=== PATIENT | male | born 1945 | race Caucasian/White ===

== ENCOUNTER → 2017-04-06 | Outpatient (CLI) | payer MEDICARE, OTHER ==
[2016-03-15 03:20] VITALS: BP 139/71
[~2017-04-06] MED LIST: ONDA4TAB10 SL; OXYC-323 PO; TAMS0.4C97 PO
--- NOTE | 2017-04-06 10:38 | RAD ---
CT of the abdomen and pelvis without contrast, 04/06/2017: History: Left flank pain, nephrolithiasis Noncontrast scans were obtained utilizing the renal stone protocol. There is mild bilateral renal cortical scarring. No intrarenal calculi are identified. The left renal collecting system and proximal left ureter are mildly distended. This is due to a 3 mm proximal left ureteral calculus located at the L3-4 level.. The right renal collecting system and right ureter are unremarkable. There is mild streaky perinephric edema, more so on the left. The prostate gland is mildly enlarged and contains calcifications. It measures 5 cm in width. There is mild diffuse bladder wall thickening accentuated by the lack of bladder distention. There is mild streaky atelectasis or scarring in the inferior aspects of the lingula and right middle lobe. Several coronary artery calcifications are noted. There is a tiny low-density lesion in the lateral aspect of the right lobe of liver. It is too small to definitively characterize but is likely a small cyst or hepatic hematoma. The gallbladder is unremarkable. No pancreatic abnormality is seen. There are calcified granulomata in the spleen. The spleen is of normal size. Moderate aortoiliac calcific plaquing is present without evidence of aneurysm. No abdominal or pelvic adenopathy is seen. The bowel loops are not dilated. Colonic diverticula are present, most numerous in the descending and sigmoid colon. No paracolonic inflammatory process is seen. There is mild streaky increased density in the central mesenteric fat compatible with mesenteric edema versus scarring. No free fluid or free air is evident in the abdomen or pelvis. IMPRESSION: 1. 3 mm obstructing calculus in the proximal left ureter. 2. Colonic diverticulosis. 3. Mild nonspecific prostatic enlargement. 4. Mild stranding in the central mesenteric fat suggesting scarring versus nonspecific edema. PQRS Compliance Statement: One or more of the following individualized dose reduction techniques were utilized for this examination: 1. Automated exposure control 2. Adjustment of the mA and/or kV according to patient size 3. Use of iterative reconstruction technique
== END | disposition home or self-care (01) ==
LOC: CT 09:53
PROVIDERS: ATTEND Physician Assistant
DX: N20.2 Calculus of kidney with calculus of ureter (principal); N40.0 Benign prostatic hyperplasia without lower urinary tract symptoms; K57.30 Diverticulosis of large intestine without perforation or abscess without bleeding
CPT/HCPCS: 74176

== ENCOUNTER → 2018-11-02 | Outpatient (CLI) | payer MEDICARE, OTHER ==
[2016-03-15 03:20] VITALS: BP 139/71
[~2018-11-02] MED LIST changes: -OXYC-323 PO; +OXYC1TAB15 PO
--- NOTE | 2018-11-02 09:09 | RAD ---
ABDOMEN LTD: 11/02/2018 8:00 AM Indication: 73 years old Male. Right upper quadrant abdominal pain. Comparison: None. TECHNIQUE: Sonographic evaluation of the right upper quadrant was performed utilizing grayscale and color Doppler imaging. FINDINGS: Liver: There is diffuse increased echogenicity of the hepatic parenchyma compatible with diffuse hepatocellular disease, most commonly due to steatosis. This decreases the sensitivity of ultrasound for the detection of focal hepatic lesions.. There is hepatopedal flow within the portal venous system. Right hepatic lobe measures 15.3 cm. Biliary system: CBD measures 3 mm. There is no intrahepatic or extrahepatic biliary dilatation. Gallbladder: There is gallbladder wall thickening without gallstones or pericholecystic fluid . Pancreas: Not well visualized due to overlapping bowel gas Right kidney: 9.5 x 5.6 cm. No hydronephrosis. There is a circumscribed hypoechoic lesion within the mid to superior pole of the right kidney measuring 1.9 x 1.5 cm which is indeterminate on this examination this finding is not well characterized on noncontrast CT abdomen/pelvis. Further evaluation with renal mass protocol CT is recommended. Free fluid:None. IMPRESSION: 1. Increased echogenicity of the hepatic parenchyma suggestive of hepatocellular disease, most, hepatic steatosis. 2. Nonspecific gallbladder wall thickening may be associated with gallbladder inflammation or hepatic/systemic inflammation. 3. Indeterminant hypoechoic lesion in the right kidney measures 1.9 x 1.5 cm. Further characterization with renal mass protocol CT is recommended. Electronically signed by: Wendy Van MD (11/02/2018 9:06 AM) [id number]
== END | disposition home or self-care (01) ==
LOC: US 08:02
PROVIDERS: ATTEND Registered Nurse
DX: K76.89 Other specified diseases of liver (principal); N28.89 Other specified disorders of kidney and ureter
CPT/HCPCS: 76705

== ENCOUNTER → 2018-11-03 | Outpatient (CLI) | payer MEDICARE, OTHER ==
[2016-03-15 03:20] VITALS: BP 139/71
[2018-11-03] MEDS: IOHEXOL 300 MG/ML 75 ML VIAL. IV ONE (12:36)
--- NOTE | 2018-11-03 15:44 | RAD ---
EXAM: CT Abdomen without and with IV contrast CLINICAL HISTORY: Renal lesion seen on prior abdominal ultrasound, CT kidney protocol to further characterize. COMPARISON: Ultrasound abdomen 11/02/2018 TECHNIQUE: Helical CT of the abdomen was performed before and after the administration of IV contrast using a multiphasic kidney protocol. Axial coronal and sagittal reformatted images were generated. PQRS compliance statement - One or more of the following individualized dose reduction techniques were utilized for this study: 1. Automated exposure control 2. Adjustment of the mA and/or kV according to patient size 3. Use of iterative reconstruction technique FINDINGS: Lower chest: Linear opacities in the lower lobes, lingula and middle lobe likely scarring/atelectasis. Scattered calcified granuloma. Coronary artery calcifications. Small hiatal hernia. Abdomen: Subcentimeter hypodense right hepatic lobe lesion is too small to accurately characterize. Splenic and hepatic calcified granuloma are seen. Adrenal glands are normal. Pancreas is unremarkable. Diffuse gallbladder wall thickening is seen with trace pericholecystic fluid. No definite calcified gallstone is seen. However there is mild dilation of the proximal cystic duct. No common hepatic or bile duct dilatation. Symmetric nephrograms. No focal renal lesion. No hydronephrosis. The abnormality seen on prior ultrasound may represent focal prominence of the renal pyramids. No definite filling defect is seen within the proximal ureters. Atherosclerotic calcifications of aorta are seen. Mild fat infiltration about the abdominal mesentery is grossly stable. No abdominal lymphadenopathy. No abdominal ascites. Bones: Degenerative changes of the spine are seen. IMPRESSION: 1. No definite renal lesion is seen. The abnormality seen on prior ultrasound may be related to prominent renal pyramids. 2. Diffuse gallbladder wall thickening is again seen. This is nonspecific and although may be seen with cholecystitis, hepatic or systemic process may also have similar appearance. This can be correlated with patient's symptoms and lab values and if further imaging is required, HIDA may provide additional details. Electronically signed by: Jon Holt MD (11/03/2018 3:41 PM) [facility]
== END | disposition home or self-care (01) ==
LOC: CT 11:52
PROVIDERS: ATTEND Registered Nurse
DX: N28.89 Other specified disorders of kidney and ureter (principal); K44.9 Diaphragmatic hernia without obstruction or gangrene; K76.89 Other specified diseases of liver; R91.8 Other nonspecific abnormal finding of lung field; J84.10 Pulmonary fibrosis, unspecified; I25.10 Atherosclerotic heart disease of native coronary artery without angina pectoris; I70.0 Atherosclerosis of aorta; M47.819 Spondylosis without myelopathy or radiculopathy, site unspecified
CPT/HCPCS: 74170; Q9967

== ENCOUNTER → 2018-11-22 | Outpatient (CLI) | payer MEDICARE, OTHER ==
[2016-03-15 03:20] VITALS: BP 139/71
[~2018-11-22] VITALS: Ht 165.1 cm; Wt 86.2 kg
[~2018-11-22] MED LIST changes: +AMLO5TAB4 PO; +ASPI81TA50 PO; +ATOR20TA PO; +LISI-338 PO; +SINCALIDE 1.72 MCG in IV NORMAL SALINE 50ML 30 ML IV ONE
--- NOTE | 2018-11-22 15:03 | RAD ---
Hepatobiliary scintigraphy 11/22/2018 INDICATION: Abnormal gallbladder diagnostic imaging. COMPARISON: CT abdomen/pelvis 11/03/2018, ultrasound abdomen 11/02/2018. TECHNIQUE: Scintigraphic imaging of the hepatobiliary system was performed after the administration of 5.5 mCi technetium 99m mebrofenin. FINDINGS: There is adequate hepatocellular uptake of radiotracer from the blood pool. Gallbladder is promptly visualized as is small bowel activity. Ejection fraction was obtained. Ejection fraction is 25 percent which is abnormal. IMPRESSION: Gallbladder is visualized with abnormal ejection fraction of 25 percent. Consideration may be given for chronic cholecystitis or biliary dyskinesia. Electronically signed by: Wendy Van MD (11/22/2018 3:00 PM) [facility]
== END | disposition home or self-care (01) ==
LOC: NM 10:56
PROVIDERS: ATTEND Surgery
DX: R93.2 Abnormal findings on diagnostic imaging of liver and biliary tract (principal)
CPT/HCPCS: 78227; A9537; J2805

== ENCOUNTER → 2019-04-24 | Outpatient (CLI) | payer MEDICARE, OTHER ==
[2016-03-15 03:20] VITALS: BP 139/71
[~2019-04-24] MED LIST changes: -SINCALIDE 1.72 MCG in IV NORMAL SALINE 50ML 30 ML IV ONE
--- NOTE | 2019-04-24 16:42 | RAD ---
INDICATION: Kidney stone COMPARISON: CT from October 2018 TECHNIQUE: Grayscale and color ultrasound images obtained of the bilateral kidneys and bladder. FINDINGS: Right Kidney: 105 mm. No hydronephrosis. Left Kidney: 112 mm. No hydronephrosis. Bladder: Minimal urine within the bladder. Bilateral ureter jets seen. IMPRESSION: * No hydronephrosis bilaterally. * No definite renal mass identified. Electronically signed by: Arturo Mccain MD (04/24/2019 4:39 PM) [facility] [place]
--- NOTE | 2019-04-24 18:15 | RAD ---
PROCEDURE: KUB STUDY DATE: 04/24/2019 CLINICAL INDICATION / HISTORY: Kidney stones. TECHNIQUE: Single AP image of the abdomen was obtained. COMPARISON: None FINDINGS: Limited visualization of the lung bases reveal no acute findings. Cholecystectomy clips in the right upper quadrant abdomen are present. A nonobstructive bowel gas pattern is present. No organomegaly or pathologic calcifications are identified. No acute osseous abnormality. There is a cluster of calcifications in the left upper quadrant abdomen that appear superior and lateral to the left renal shadow. These could represent splenic calcifications. Pelvis shows 1 lucent centered 3 mm calcification in the left lower quadrant. IMPRESSION: 1. Left upper quadrant abdominal calcifications, favored to be splenic in origin. Correlation with CT could be performed if clinically warranted in further evaluation. Otherwise no definite renal or ureteral calcified stones are identified. 2. Left lower quadrant 3 mm pelvic calcification, possibly a phlebolith versus distal left ureteral stone. Electronically signed by: Rowena Osullivan MD (04/24/2019 6:12 PM) [facility]
== END | disposition home or self-care (01) ==
LOC: US 12:17
PROVIDERS: ATTEND Urology
DX: N20.1 Calculus of ureter (principal)
CPT/HCPCS: 74018; 76770

== ENCOUNTER → 2020-06-19 | Outpatient (CLI) | payer MEDICARE, OTHER ==
[2016-03-15 03:20] VITALS: BP 139/71
[~2020-06-19] MED LIST changes: -LISI-338 PO; +LISI-517 PO
--- NOTE | 2020-06-19 16:15 | RAD ---
C-spine 6 views INDICATION: Chronic neck pain COMPARISON: None. TECHNIQUE: Lateral, swimmer's lateral, bilateral oblique, AP and open-mouth odontoid views of the cer vical spine were obtained. FINDINGS: The cervical spine is straightened. No listhesis is apparent. The bones are demineralized but no frac ture or aggressive appearing bony lesions are identified. There are disc and facet degenerative sloan es throughout the cervical spine, resulting most conspicuously in foraminal narrowing on the right at C3-C4 and at C5-C6. Disc space narrowing at C5-C6 and C6-C7 is present. On the left, foraminal narro wing is most conspicuous at C5-C6 and C6-C7. No prevertebral soft tissue swelling. No abnormal soft t issue gas. The odontoid view shows symmetric alignment of the lateral masses of C1. IMPRESSION: No fracture or malalignment but multilevel cervical spinal degenerative spondylosis resulting in vary ing degrees of foraminal stenosis as described. These can be evaluated in greater detail as clinicall y warranted using CT with or without myelographic technique or MRI. Electronically signed by: Rowena Osullivan MD (06/19/2020 4:13 PM) [id number]
== END ==
LOC: RAD 09:38
PROVIDERS: ATTEND Physician Assistant
DX: M47.812 Spondylosis without myelopathy or radiculopathy, cervical region (principal)
CPT/HCPCS: 72040

== ENCOUNTER → 2020-08-29 | Day surgery (SDC) | payer MEDICARE, OTHER ==
[~2020-08-29] MED LIST changes: +ACETAMINOPHEN 500 MG TABLET PO PRN; +ASCO500C PO; +BALANCED SALT IRRIG SOLN NO.2 500 ML IO ONE; +BENZONATATE 100 MG CAPSULE. PO PRN; +BRIMONIDINE 0.2% OPHTH SOLUTION 5ML BOTTLE. OD ONE; +CEFUROXIME OPHTH 4 MG/0.4 ML SYRINGE. OD ONE; +CHOL10004 PO; +CHONDROIT-SOD-HYALURONATE KIT. OD ONE; +FOLI0.8C PO; +IBUPROFEN 200 MG TABLET PO PRN; +IPRATRPIUM/ALBUTEROL 0.5/2.5MG 3 ML NEBU. NEB PRN; +IV RINGERS SOLUTION,LACTATED 1,000 ML IV SCH; +LIDO/EPI IN BSS OPHTH 2.7 ML SYRINGE. OD ONE; +LIDOCAINE 2% JELLY 6ML IN APPLICATOR. ONE; +METO50TA29 PO; +MIDAZOLAM HCL PF 2 MG/2 ML VIAL. IV ONE; +MIDAZOLAM HCL PF 2 MG/2 ML VIAL. ONE; +OMEG1CAP38 PO; +ONDANSETRON PF 4 MG/2 ML VIAL. IV PRN; +PHENYLEPHRINE 10% OPHTH SOLUTION 5ML BOTTLE. OD PRN; +POVIDONE-IODINE 5% OPHTH SOLUTION 30ML BOTTLE. OD ONE; +POVIDONE-IODINE 5% OPHTH SOLUTION 30ML BOTTLE. OD PRN; +POVIDONE-IODINE 5% OPHTH SOLUTION 30ML BOTTLE. ONE; +PROPARACAINE 0.5% OPHTH SOLUTION 15ML BOTTLE. OD ONE; +PROPARACAINE 0.5% OPHTH SOLUTION 15ML BOTTLE. OD PRN; +fish oil; +folic acid; +prednisoLONE ACETATE 1% OPHTH SUSPENSION 5ML BOTTLE. OD ONE; +vitamin c; +vitamin d3
[2020-08-29] MEDS: KETOROLAC TROMETHAMINE 0.5% OPHTH SOLUTION BOTTLE. OD SCH ×2 (08:08→08:14)
[2020-08-29] MEDS: TOBRAMYCIN 0.3% OPHTH SOLUTION 5ML BOTTLE. OD SCH ×2 (08:09→08:14)
[2020-08-29] MEDS: TROPICAMIDE 1% OPHTH SOLUTION 15ML BOTTLE. OD SCH ×3 (08:09→08:19)
[2020-08-29] MEDS: PHENYLEPHRINE 2.5% OPHTH SOLUTION 2ML BOTTLE. OD SCH ×3 (08:09→08:19)
--- NOTE | 2020-08-29 09:49 | PDOC4 ---
SURGEON: Gilbert You MD Date of Procedure: 08/29/20 PREOP Diagnosis Visually significant cataract: Right Eye OD POSTOP Diagnosis Same PROCEDURE: Phaco w/ posterior chamber IOL: Right Eye OD ANESTHESIA Deep forniceal periocular 2% Lidocaine jelly Batsheva/retro bulbar block with 2% Lidocaine with 0.5% Marcaine DESCRIPTION OF PROCEDURE The risks, benefits, and alternatives were discussed with the patient who elected to proceed. Informed consent was obtained in writing and placed in the chart After anesthetizing the eye topically, the patient was taken to the operating room, and the operative eye was prepped and draped in the usual sterile fashion for ocular surgery. A wire lid speculum was placed. A 1-mm clear corneal paracentesis incision was created with the side-port blade at a position three o'clock hours clockwise from the temporal cornea. Then, 1% non-preserved Lidocaine with epinephrine was injected into the anterior chamber followed by viscoelastic. Cotton-tipped applicators were used to stabilize the globe, and a 2.4 mm keratome was used to create a self-sealing incision in clear cornea at the temporal limbus. The Utrata forceps were used to create a continuous curvilinear capsulorrhexis. Balanced saline solution was injected via cannula beneath the capsulorrhexis edge to hydrodissect the lens nucleus and cortex from the lens capsule. The phacoemulsification handpiece and a chopping instrument were then used to remove the lens nucleus. The remaining epinuclear material and cortex were removed with the irrigation/aspiration handpiece. V iscoelastic was used to re-inflate the lens capsule, and the intraocular lens was injected directly into the capsular bag. The corneal wound edges were hydrated with balanced salt solution on a cannula and the irrigation/aspiration handpiece was used to extract the remaining viscoelastic. Cefuroxime 0.1mg/ml / Vigamox 0.5% was injected into the anterior chamber intracamerally. The wounds were inspected and found to be watertight at an appropriate intraocular pressure. Topical antibiotic drops were placed on the corneal surface. LRI: No If Yes, Number [] [place] [] Length [] degrees Depth [] microns Incision [place]: 180 Toric Lens [place] [] Patch/shield with Maxitrol/Tobradex/Erythromycin ointment: Yes No Co-managed patients/postop examination stable for co-management with referring doctor. EBL EBL: None SPECIMANS COLLECTED Specimens Collected: None GILBERT YOU MD Aug 29, 2020 09:49
[2020-08-29 09:59] VITALS: BP 138/72
== END | disposition home or self-care (01) ==
LOC: SURG 07:57
PROVIDERS: ATTEND Ophthalmology
DX: H25.11 Age-related nuclear cataract, right eye (principal); I10 Essential (primary) hypertension; E78.00 Pure hypercholesterolemia, unspecified; M19.90 Unspecified osteoarthritis, unspecified site; I25.10 Atherosclerotic heart disease of native coronary artery without angina pectoris; Z87.442 Personal history of urinary calculi; Z95.5 Presence of coronary angioplasty implant and graft; Z79.899 Other long term (current) drug therapy
CPT/HCPCS: 66984; J2250; V2632

== ENCOUNTER → 2020-09-12 | Day surgery (SDC) | payer MEDICARE, OTHER ==
[~2020-09-12] MED LIST changes: -BRIMONIDINE 0.2% OPHTH SOLUTION 5ML BOTTLE. OD ONE; +BRIMONIDINE 0.2% OPHTH SOLUTION 5ML BOTTLE. OS ONE; -CEFUROXIME OPHTH 4 MG/0.4 ML SYRINGE. OD ONE; +CEFUROXIME OPHTH 4 MG/0.4 ML SYRINGE. OS ONE; -CHONDROIT-SOD-HYALURONATE KIT. OD ONE; +CHONDROIT-SOD-HYALURONATE KIT. OS ONE; -LIDO/EPI IN BSS OPHTH 2.7 ML SYRINGE. OD ONE; +LIDO/EPI IN BSS OPHTH 2.7 ML SYRINGE. OS ONE; -PHENYLEPHRINE 10% OPHTH SOLUTION 5ML BOTTLE. OD PRN; +PHENYLEPHRINE 10% OPHTH SOLUTION 5ML BOTTLE. OS PRN; -POVIDONE-IODINE 5% OPHTH SOLUTION 30ML BOTTLE. OD ONE; -POVIDONE-IODINE 5% OPHTH SOLUTION 30ML BOTTLE. OD PRN; +POVIDONE-IODINE 5% OPHTH SOLUTION 30ML BOTTLE. OS ONE; +POVIDONE-IODINE 5% OPHTH SOLUTION 30ML BOTTLE. OS PRN; -PROPARACAINE 0.5% OPHTH SOLUTION 15ML BOTTLE. OD ONE; -PROPARACAINE 0.5% OPHTH SOLUTION 15ML BOTTLE. OD PRN; +PROPARACAINE 0.5% OPHTH SOLUTION 15ML BOTTLE. OS ONE; +PROPARACAINE 0.5% OPHTH SOLUTION 15ML BOTTLE. OS PRN; -prednisoLONE ACETATE 1% OPHTH SUSPENSION 5ML BOTTLE. OD ONE; +prednisoLONE ACETATE 1% OPHTH SUSPENSION 5ML BOTTLE. OS ONE
[2020-09-12] MEDS: TROPICAMIDE 1% OPHTH SOLUTION 15ML BOTTLE. OS SCH ×3 (08:21→08:31)
[2020-09-12] MEDS: KETOROLAC TROMETHAMINE 0.5% OPHTH SOLUTION BOTTLE. OS SCH ×2 (08:21→08:26)
[2020-09-12] MEDS: PHENYLEPHRINE 2.5% OPHTH SOLUTION 2ML BOTTLE. OS SCH ×3 (08:21→08:31)
[2020-09-12] MEDS: TOBRAMYCIN 0.3% OPHTH SOLUTION 5ML BOTTLE. OS SCH ×2 (08:22→08:26)
--- NOTE | 2020-09-12 09:52 | PDOC4 ---
SURGEON: Gilbert You MD Date of Procedure: 09/12/20 PREOP Diagnosis Visually significant cataract: Left Eye OS POSTOP Diagnosis Same PROCEDURE: Phaco w/ posterior chamber IOL: Left Eye OS ANESTHESIA Deep forniceal periocular 2% Lidocaine jelly Batsheva/retro bulbar block with 2% Lidocaine with 0.5% Marcaine DESCRIPTION OF PROCEDURE The risks, benefits, and alternatives were discussed with the patient who elected to proceed. Informed consent was obtained in writing and placed in the chart After anesthetizing the eye topically, the patient was taken to the operating room, and the operative eye was prepped and draped in the usual sterile fashion for ocular surgery. A wire lid speculum was placed. A 1-mm clear corneal paracentesis incision was created with the side-port blade at a position three o'clock hours clockwise from the temporal cornea. Then, 1% non-preserved Lidocaine with epinephrine was injected into the anterior chamber followed by viscoelastic. Cotton-tipped applicators were used to stabilize the globe, and a 2.4 mm keratome was used to create a self-sealing incision in clear cornea at the temporal limbus. The Utrata forceps were used to create a continuous curvilinear capsulorrhexis. Balanced saline solution was injected via cannula beneath the capsulorrhexis edge to hydrodissect the lens nucleus and cortex from the lens capsule. The phacoemulsification handpiece and a chopping instrument were then used to remove the lens nucleus. The remaining epinuclear material and cortex were removed with the irrigation/aspiration handpiece. Vis coelastic was used to re-inflate the lens capsule, and the intraocular lens was injected directly into the capsular bag. The corneal wound edges were hydrated with balanced salt solution on a cannula and the irrigation/aspiration handpiece was used to extract the remaining viscoelastic. Cefuroxime 0.1mg/ml / Vigamox 0.5% was injected into the anterior chamber intracamerally. The wounds were inspected and found to be watertight at an appropriate intraocular pressure. Topical antibiotic drops were placed on the corneal surface. LRI: No If Yes, Number [] [place] [] Length [] degrees Depth [] microns Incision [place]: 180 Toric Lens [place] [] Patch/shield with Maxitrol/Tobradex/Erythromycin ointment: Yes No Co-managed patients/postop examination stable for co-management with referring doctor. EBL EBL: None SPECIMANS COLLECTED Specimens Collected: None GILBERT YOU MD Sep 12, 2020 09:52
[2020-09-12 10:00] VITALS: BP 147/36
== END | disposition home or self-care (01) ==
LOC: SURG 07:59
PROVIDERS: ATTEND Ophthalmology
DX: H25.12 Age-related nuclear cataract, left eye (principal); I10 Essential (primary) hypertension; E78.00 Pure hypercholesterolemia, unspecified; M19.90 Unspecified osteoarthritis, unspecified site; I25.10 Atherosclerotic heart disease of native coronary artery without angina pectoris; Z87.442 Personal history of urinary calculi; Z79.899 Other long term (current) drug therapy; Z95.5 Presence of coronary angioplasty implant and graft
CPT/HCPCS: 66984; V2632; J2250